=== PATIENT | male | born 1950 | race Caucasian/White ===

== ENCOUNTER 2017-08-12 20:57 | Inpatient (IN) ==
--- NOTE | 2017-08-12 21:28 | Emergency Department Note ---
Disposition Clinical Impression: NSTEMI (non-ST elevated myocardial infarction) Disposition: Admitted As Inpatient Condition: Fair Referrals: Ggae Avendaño DO [Primary Care Provider] - Forms: ED Satisfaction Letter Time of Disposition: 23:00 General Adult HPI - General Chief complaint: ED Arrhythmia/Palpitations Stated complaint: elevated heart rate, chest pain Time Seen by Provider: 08/12/17 21:01 Source: patient Mode of arrival: ambulatory Limitations: no limitations Nursing Notes Reviewed: Yes Vital Signs Reviewed: Yes - History of Present Illness HPI Narrative: 67-year-old male presenting to the emergency room chief complaint palpitations. Patient states this afternoon he felt pressure in his heart and felt like his heart was racing. He used an at-home blood pressure cuff and pulse ox to determine his pulse. He states it was between 140 and 145. Patient does have a pacemaker placed. He states it was for bradycardia. Patient denies radiation of this pain in his chest. He denies nausea or vomiting but did have diaphoresis. Patient does have high blood pressure and A. fib. Patient has had an ablation is on no anticoagulation at this time. Patient denies any recent illnesses, fever, shortness of breath. Pain Scale: 7 - Related Data Home Medications Medication Instructions Recorded Confirmed Aspirin 325 mg PO DAILY 08/12/17 08/12/17 Atorvastatin [Lipitor] 40 mg PO HS 08/12/17 08/12/17 Flecainide Acetate [Flecainide 50 mg PO Q12H 08/12/17 08/12/17 Acetate] Lisinopril/Hydrochlorothiazide 1 each PO DAILY 08/12/17 08/12/17 [Zestoretic 10-12.5 mg Tablet] Metoprolol [Lopressor] 100 mg PO BID 08/12/17 08/12/17 Omeprazole [PriLOSEC] 20 mg PO DAILY 08/12/17 08/12/17 Allergies Allergy/AdvReac Type Severity Reaction Status Date / Time No Known Allergies Allergy Verified 11/19/15 16:31 All systems ED: reviewed and negative except as stated. Constitutional: Denies: fever, chills Eyes: Reports: as per HPI ENT ED: Reports: as per HPI Cardiovascular: Reports: chest pain, palpitations. Denies: dyspnea on exertion Respiratory: Denies: cough, dyspnea, wheezes Gastrointestinal: Denies: abdominal pain, nausea, vomiting Genitourinary: Reports: as per HPI Musculoskeletal: Reports: as per HPI Integumentary: Reports: as per HPI Neurological: Denies: numbness, paresthesias Psychiatric: Reports: as per HPI Endocrine: Reports: as per HPI Hematological/Lymphatic: Reports: as per HPI Allergic/Immunologic: Reports: as per HPI Past Medical History - Past Medical History Attestation: Yes The following information was validated with the patient. Medical history: Reports: atrial fibrillation, hypertension, myocardial infarction Psychiatric history: Reports: no psych history - Social History Smoking Status: Current every day smoker Smokeless Tobacco Status: No Alcohol use: Reports: occasionally Drug use: Reports: none Physical Exam - General Limitations: no limitations General appearance: alert, in no apparent distress - Head Head exam: atraumatic, normocephalic, normal inspection - Eye Eye exam: Present: normal appearance. Absent: scleral icterus, conjunctival injection - Chest Chest inspection: Present: normal inspection, symmetric chest wall rise. Absent : tenderness, rash - Respiratory Respiratory exam: Present: normal lung sounds bilaterally, respiratory distress - Cardiovascular Cardiovascular exam: Present: regular rate, normal rhythm, normal heart sounds - Abdominal Exam Abdominal exam: Present: soft, Non-Tender. Absent: distention, guarding, rebound - Extremities Exam Extremities exam: Present: normal inspection, full ROM - Neurological Exam Neurological exam: Present: alert, oriented X3 - Psychiatric Psychiatric exam: Present: normal affect, normal mood - Skin Skin exam: Present: warm, intact Course Course Narrative: 67-year-old male presented to the emergency Department chief complaint of palpitations. EKG completed showed first-degree heart block. Patient's heart rate 70 here. We will perform a palpitation workup including basic lab, EKG, chest x-ray. Patient alert and oriented 3 and room with stable vital signs. He agrees with this plan. - Reevaluation(s) Reevaluation #1: Patient lab work is come back with an elevated troponin of 0.07. Reevaluation of the patient and he is now having 3 out of 10 chest pain. Start sublingual nitrogen trial. After 2 sublingual nitrogen he is pain-free. Patient will be started on heparin at this time and admitted for an N STEMI. I spoke with the hospitalist on-call Dr. Dalal who agrees to accept the patient at this time. Patient's alert and oriented 3 in room and stable vital signs at this time. He agrees with this plan. Time: 23:00 Vital Signs Temperature 97.9 F 08/12/17 20:57 Pulse Rate 69 08/12/17 20:57 Respiratory Rate 18 08/12/17 20:57 Blood Pressure 133/84 08/12/17 20:57 O2 Sat by Pulse Oximetry 100 08/12/17 20:57 Temperature 97.9 F 08/12/17 20:57 Pulse Rate 70 08/12/17 22:17 Respiratory Rate 22 08/12/17 22:17 Blood Pressure 94/70 08/12/17 22:17 O2 Sat by Pulse Oximetry 96 08/12/17 22:17 Oxygen Delivery Oxygen Delivery Room Air Medical Decision Making - Lab Data Result diagrams: 08/12/17 21:23 08/12/17 21:23 Lab Results 08/12/17 08/12/17 08/12/17 Range/Units 21:23 21:23 21:23 WBC 9.8 (4.3-11.1) K/mcL RBC 3.33 L (4.19-5.50) M/mcL Hgb 11.1 L (12.9-16.9) g/dL Hct 33.3 L (37.5-50.1) % MCV 100.0 (83.0-100.0) fL MCH 33.3 (28.0-33.3) pg MCHC 33.3 (31.6-35.5) g/dL RDW 12.3 (11.5-14.5) % Plt Count 233 (140-400) K/mcL MPV 9.3 L (9.4-12.4) fL Immature Gran % 0.2 (0-4) % Seg Neutrophils % 59.5 % Lymphocytes % 26.9 % Monocytes % 12.1 % Eosinophils % 0.9 % Basophils % 0.4 % Neutrophils # 5.8 (1.6-8.9) K/mcL Lymphocytes # 2.6 (0.6-4.6) K/mcL Monocytes # 1.2 (0.0-1.3) K/mcL Eosinophils # 0.1 (0.0-0.6) K/mcL Basophils # 0.0 (0.0-0.2) K/mcL PT 10.7 (9.4-12.1) Seconds INR 1.0 APTT 28.6 (26.0-36.0) Seconds Sodium 140 (136-145) mEq/L Potassium 4.2 (3.5-4.5) mEq/L Chloride 109 (98-109) mEq/L Carbon Dioxide 23 (19-29) mEq/L BUN 19 (8-26) mg/dL Creatinine 1.49 H (0.72-1.25) mg/dL Est GFR ( Amer) 57 L (> 60) Est GFR (Non-Af Amer) 47 L (> 60) BUN/Creatinine Ratio 13 (6-26) Glucose 115 H (70-99) mg/dL Calculated Osmolality 293 (280-300) Calcium 9.4 (8.6-10.8) mg/dL Magnesium 2.1 (1.6-2.6) mg/dL Troponin I (0-0.03) ng/mL TSH 2.398 (0.350-4.840) mcIU/mL 08/12/ Range/Units 21:23 WBC (4.3-11.1) K/mcL RBC (4.19-5.50) M/mcL Hgb (12.9-16.9) g/dL Hct (37.5-50.1) % MCV (83.0-100.0) fL MCH (28.0-33.3) pg MCHC (31.6-35.5) g/dL RDW (11.5-14.5) % Plt Count (140-400) K/mcL MPV (9.4-12.4) fL Immature Gran % (0-4) % Seg Neutrophils % % Lymphocytes % % Monocytes % % Eosinophils % % Basophils % % Neutrophils # (1.6-8.9) K/mcL Lymphocytes # (0.6-4.6) K/mcL Monocytes # (0.0-1.3) K/mcL Eosinophils # (0.0-0.6) K/mcL Basophils # (0.0-0.2) K/mcL PT (9.4-12.1) Seconds INR APTT (26.0-36.0) Seconds Sodium (136-145) mEq/L Potassium (3.5-4.5) mEq/L Chloride (98-109) mEq/L Carbon Dioxide (19-29) mEq/L BUN (8-26) mg/dL Creatinine (0.72-1.25) mg/dL Est GFR ( Amer) (> 60) Est GFR (Non-Af Amer) (> 60) BUN/Creatinine Ratio (6-26) Glucose (70-99) mg/dL Calculated Osmolality (280-300) Calcium (8.6-10.8) mg/dL Magnesium (1.6-2.6) mg/dL Troponin I 0.07 H* (0-0.03) ng/mL TSH (0.350-4.840) mcIU/mL
[2017-08-12 21:29] LABS: Basophils % 0.4 %; Eosinophils # 0.1 K/mcL (0.0-0.6); Eosinophils % 0.9 %; Hematocrit 33.3 % (37.5-50.1); Hemoglobin 11.1 g/dL (12.9-16.9); Immature Granulocytes % 0.2 % (0-4); Lymphocytes # 2.6 K/mcL (0.6-4.6); Lymphocytes % 26.9 %; Mean Corpuscular HGB Conc 33.3 g/dL (31.6-35.5); Mean Corpuscular Hemoglobin 33.3 pg (28.0-33.3); Mean Platelet Volume 9.3 fL (9.4-12.4); Monocytes # 1.2 K/mcL (0.0-1.3); Monocytes % 12.1 %; Neutrophils # 5.8 K/mcL (1.6-8.9); Platelet Count 233 K/mcL (140-400); Red Blood Count 3.33 M/mcL (4.19-5.50); Red Cell Distribution Width 12.3 % (11.5-14.5); Segmented Neutrophils % 59.5 %
[2017-08-12 21:34] LABS: Prothrombin Time 10.7 Seconds (9.4-12.1)
[2017-08-12 21:36] LABS: Activated Partial Thrombo Time 28.6 Seconds (26.0-36.0)
[2017-08-12 21:41] LABS: Calcium 9.4 mg/dL (8.6-10.8); Magnesium 2.1 mg/dL (1.6-2.6); Potassium 4.2 mEq/L (3.5-4.5)
[2017-08-12] MEDS ORDERED: *HR* Heparin 5,000 UNIT/ML VIAL IVP ONE (21:58)
[2017-08-12] MEDS ORDERED: *HR* Heparin 5,000 UNIT/ML VIAL IVP PRN ×2 (21:58)
[2017-08-12] MEDS ORDERED: Heparin 25,000 UNIT/500 ML D5W 25,000 UNIT/500 ML MLS IVC SCH (22:00)
[2017-08-12] MEDS ORDERED: 0.9 % Sodium Chloride 1,000 ML IVC SCH (22:00)
--- NOTE | 2017-08-12 22:02 | Emergency Department Note ---
START Narrative - START START: I examined this patient and my medical decision-making was reviewed with the Resident Physician. I agree with the documented findings, disposition and treatment plan as described except to the extent set forth below. 67yo M here for chest pain EKG shows a first-degree AV block. He does have a slightly elevated troponin. We will admit the patient to hospitalist. Consult cardiology. Started on heparin drip. Nitroglycerin. He took aspirin today. No critical care time
[2017-08-12 22:03] LABS: Thyroid Stimulating Hormone 2.398 mcIU/mL (0.350-4.840)
[2017-08-12] MEDS: Nitroglycerin 0.4 MG TAB.SUBL SL PRN ×2 (22:04→22:12)
[2017-08-13] MEDS ORDERED: *HR* HYDROcodone/Acet 5/325 mg TABLET PO PRN (03:00)
[2017-08-13] MEDS ORDERED: *HR* Morphine 2 MG/ML SYRINGE IVP PRN (03:00)
[2017-08-13] MEDS ORDERED: Acetaminophen 325 MG TABLET PO PRN (03:00)
[2017-08-13] MEDS ORDERED: Naloxone 0.4 MG/ML INJ IVP PRN (03:00)
--- NOTE | 2017-08-13 03:23 | Internal Med History&Physical ---
Date of Encounter: 08/13/17 Time of Encounter: 03: Assessment and Plan (1) Essential hypertension Current visit: Yes Status: Acute Continue with lisinopril HCTZ. Blood pressure is well controlled. (2) Hyperlipidemia Current visit: Yes Status: Acute Continue with Lipitor. Qualifiers: Hyperlipidemia type: unspecified Qualified Code(s): E78.5 - Hyperlipidemia , unspecified (3) NSTEMI (non-ST elevated myocardial infarction) Current visit: Yes Status: Acute Patient had typical anginal pain that lasted for 2 hours. Eventually improved with nitroglycerin. We will continue with IV heparin continuous infusion per ACS protocol. Trend troponin. Consult cardiology. He is at high risk for morbidity, mortality and complications due to IV heparin continuous infusion which requires intensive monitoring of coagulation parameters. Internal Medicine - H&P: HPI Chief complaint: Chest pain Admitted From: Emergency Dept Plans for Post Hospital Care: Home History of present illness: Mr. Siddiqi is a 67 year old male with past medical history significant for hypertension, atrial fibrillation, coronary artery disease and hyperlipidemia who presented to the hospital for evaluation of chest pain. Yesterday after carrying some light objects upstairs after she finished climbing stairs he started having sudden onset substernal severe pressure-like chest pain. Chest pain lasted for about 2 hours. He was brought to the hospital where he was given nitroglycerin which relieved the pain. His troponin was elevated and he was started on treatment with IV heparin and referred for admission. Family history: Patient's mother suffered with diabetes. No history of premature coronary artery disease. Social history he smokes 6 cigarettes a day, denies alcohol and drug use. Past Med Surg Social Fam HX - Past Medical History Medical history: atrial fibrillation, hypertension Psychiatric history: no psych history - Social History Smoking Status: Current every day smoker Smokeless Tobacco Status: No Alcohol use: rarely Drug use: none - Family History Mother Hx Family Endocrine Disorder: Yes Internal Medicine - H&P: Meds Aspirin 325 mg PO DAILY 08/12/17 [History] Atorvastatin [Lipitor] 40 mg PO HS 08/12/17 [History] Flecainide Acetate [Flecainide Acetate] 50 mg PO Q12H 08/12/17 [History] Lisinopril/Hydrochlorothiazide [Zestoretic 10-12.5 mg Tablet] 1 each PO DAILY [History] Metoprolol [Lopressor] 100 mg PO BID 08/12/17 [History] Omeprazole [PriLOSEC] 20 mg PO DAILY 08/12/17 [History] 3 Allergy/AdvReac Type Severity Reaction Status Date / Time No Known Allergies Allergy Verified 11/19/15 16:31 All Systems PM: A 10-system review of systems was performed and is negative for pertinent findings except as documented above in the HPI. - Constitutional Vitals: Temp Pulse Resp BP Pulse Ox 97.6 F 82 18 132/88 97 08/13/17 00:20 08/13/17 00:20 08/13/17 00:20 08/13/17 00:20 08/13/17 00:20 General appearance: Present: A&O X 3, no acute distress - Eye Eye exam: Present: PERRL, conjuntiva pink, sclera anicteric Pupils: Present: PERRL - Cardiovascular Cardiovascular exam: Present: RRR, +S1, +S2. Absent: diastolic murmur, gallop, rubs, systolic murmur - GI/Abdominal GI/Abdominal exam: Present: normal bowel sounds, soft, no peritoneal signs. Absent: distended, tenderness - Extremities Exam Extremities exam: Present: warm, radial pulses palpable and symmetrical. Absent : calf tenderness, cyanotic, pedal edema - Skin Skin exam: Present: dry, intact Internal Med - H&P Results - Labs CBC & Chem 7: 08/13/17 03:44 08/13/17 03:44 - EKG Data -: EKG Interpreted by Myself EKG shows normal: sinus rhythm (First degree AV block.), QRS complexes, ST-T waves Rate: normal
[2017-08-13 03:51] LABS: Basophils % 0.6 %; Eosinophils # 0.1 K/mcL (0.0-0.6); Eosinophils % 1.9 %; Hematocrit 30.8 % (37.5-50.1); Hemoglobin 10.2 g/dL (12.9-16.9); Immature Granulocytes % 0.1 % (0-4); Lymphocytes # 2.8 K/mcL (0.6-4.6); Lymphocytes % 41.3 %; Mean Corpuscular HGB Conc 33.1 g/dL (31.6-35.5); Mean Corpuscular Hemoglobin 33.6 pg (28.0-33.3); Mean Corpuscular Volume 101.3 fL (83.0-100.0); Mean Platelet Volume 9.2 fL (9.4-12.4); Monocytes # 0.8 K/mcL (0.0-1.3); Monocytes % 12.1 %; Platelet Count 204 K/mcL (140-400); Red Blood Count 3.04 M/mcL (4.19-5.50); Red Cell Distribution Width 12.4 % (11.5-14.5)
[2017-08-13 04:02] LABS: BUN/Creatinine Ratio 14 (6-26); Blood Urea Nitrogen 19 mg/dL (8-26); Calcium 9.2 mg/dL (8.6-10.8); Carbon Dioxide 24 mEq/L (19-29); Chloride 110 mEq/L (98-109); Glucose 91 mg/dL (70-99); Osmolality,Calculated 296 (280-300); Sodium 142 mEq/L (136-145); eGFR For African Americans > 60 (> 60); eGFR For Non-African Americans 52 (> 60)
[2017-08-13 04:23] LABS: Activated Partial Thrombo Time > 360.0 Seconds (26.0-36.0)
[2017-08-13 04:32] LABS: Heparin anti-factor XA UFH 1.34 IU/mL (0.30-0.70)
[2017-08-13] MEDS ORDERED: Metoprolol 100 MG TABLET PO SCH (09:00)
[2017-08-13] MEDS ORDERED: Aspirin 325 MG TABLET PO SCH (09:00)
--- NOTE | 2017-08-13 09:18 | Cardiology Consult Note ---
Date of Encounter: 08/13/17 Time of Encounter: 08:45 Assessment and Plan (1) Atrial fibrillation with RVR Current Visit: Yes Status: Acute Per cardiology: -Has a history of atrial fib/flutter s/p ablation 2005. -Not on anticoagulation in outpatient setting. -Admitted with palpitations. -Known medtronic pacemaker with device interrogated with atrial fibrillation/ flutter with RVR. -On flecanide and metopolol. -Currently SR, average HR previous 12 hours noted to be 64. -[id number] score 2 (age,HTN). Recommend anticoagulation. Patient agreeable. Denies bleeding or blood loss. Currently on heparin drip. -TTE pending. Pending results will decide regarding which anticoagulant. Plan to start eliquis 5mg BID if no significant valvular findings on TTE. -Will stop flecanide. -Plan to start eliquis pending TTE and will discontinue heparin drip. -Will continue to monitor. (2) Elevated troponin Current Visit: Yes Status: Acute Per cardiology: -Troponin 0.07, 0.07. -Troponins flat and adynamic in the setting of a.fib/flutter with RVR. -Denies chest pain. -ECG with no acute ischemic changes. -TTE pending. -On asa, statin, beta marco a, Heparin drip. -DO not suspect NSTEMI, suspect demand ischemia related to above. No cardiac rehab warranted. -Further recommendations pending TTE. Discussion w patient/family: The assessment and plan as outlined above was discussed with the patient who expressed understanding and agreement. All questions were answered. Thank you for involving us in the care of your patient. Please call with any questions. Discussed and reviewed with . History of Present Illness Consult date: 08/13/17 Requesting physician: Andreas Fox Consult reason: elevated troponin Chief complaint: palpitations History of present illness: Mr. Siddiqi is a 67 year old male with a relevant past medical history of SVT, atrial fibrillation/flutter s/p ablation in 2005, bradycardia s/p pacemaker, HTN , and tobacco abuse. Patient presents to [facility] with complaints of palpitations. Patient states he checked his HR at home and noted it to be 145. Patient denies chest pain, shortness of breath, or increased fatigue. Past Med Surg Social Fam HX - Past Medical History Attestation: Yes The following information was validated with the patient. Source: patient, old records reviewed Medical history: atrial fibrillation, hypertension Psychiatric history: no psych history - Social History Smoking Status: Current every day smoker Smokeless Tobacco Status: No Alcohol use: rarely Drug use: none - Family History Mother Hx Family Endocrine Disorder: Yes Medications and Allergies Aspirin 325 mg PO DAILY 08/12/17 [History] Atorvastatin [Lipitor] 40 mg PO HS 08/12/17 [History] Flecainide Acetate [Flecainide Acetate] 50 mg PO Q12H 08/12/17 [History] Lisinopril/Hydrochlorothiazide [Zestoretic 10-12.5 mg Tablet] 1 each PO DAILY [History] Metoprolol [Lopressor] 100 mg PO BID 08/12/17 [History] Omeprazole [PriLOSEC] 20 mg PO DAILY 08/12/17 [History] 3 Allergy/AdvReac Type Severity Reaction Status Date / Time No Known Allergies Allergy Verified 11/19/15 16:31 All Systems Review: A 10-system review of systems was performed and is negative for pertinent findings except as documented above in the HPI. - Cardiovascular Cardiovascular: as per HPI, palpitations, rapid heart rate Physical Examination Vital Signs, Last 4 Hours Temp Pulse Resp BP Pulse Ox 08/13/17 06:41 97.7 F 68 18 109/65 97 General: Conversant, No Apparent Distress HEENT: Atraumatic, Normocephaly, Mucus Membranes Moist Neck: No JVD, Normal carotid pulses Cardiac: Reg Rate and Rhythm, Normal S1 and S2, No Murmur Lungs: Normal Breath Sounds, No Wheeze, Rales, Rhonchi Neuro: Alert and responsive, No focal deficits noted Abdomen: Soft, Non-Tender Skin: No rashes noted on visualized skin Musculoskeletal: No Chest Wall Tenderness Extremities: No Clubbing, No Cyanosis, No Edema, Normal Pulses Results 08/13/17 03:44 08/13/17 03:44 Lab Results Impressions Chest X-Ray 08/12/17 21:16 IMPRESSION: No acute process. D/ / Je Anguiano MD / Je Anguiano MD Interpreting Provider: Je Anguiano MD Active Medications Acetaminophen (Tylenol) 650 mg PO Q6HR PRN PRN Reason: Mild Pain (1-3) Stop: 02/12/18 03:01 Hydrocodone Bitart/Acetaminophen (Brave 5-325 Mg) 1 tab PO Q4HR PRN PRN Reason: Moderate Pain (4-6) Stop: 02/12/18 03:01 Aspirin (Aspirin) 325 mg PO DAILY [facility] Stop: 02/12/18 09:01 Atorvastatin Calcium (Lipitor) 40 mg PO HS [facility] Stop: 02/12/18 21:01 Flecainide Acetate (Flecainide) 50 mg PO Q12H [facility] Stop: 02/12/18 09:01 Lisinopril/HCTZ (Prinzide 10-12.5) 1 each PO DAILY [facility] Stop: 02/12/18 09:01 Heparin Sodium (Porcine) (Heparin) 4,000 unit IVP Q6HR PRN PRN Reason: SEE COMMENTS Stop: 02/11/18 21:59 Last Admin: 08/13/17 01:09 Dose: 4,000 unit Heparin Sodium (Porcine) (Heparin) 2,000 unit IVP Q6H PRN PRN Reason: SEE COMMENTS Stop: 02/11/18 21:59 Heparin Sodium/Dextrose (Heparin 25,000 Unit/500 Ml D5w) 25,000 unit in 500 mls @ 17.256 mls/hr IVC .Q24H [facility]; 12 UNIT/KG/HR PRN Reason: Protocol Stop: 02/11/18 22:01 Last Titration: 08/13/17 05:30 Dose: 13.35 unit/kg/hr, 19.2 mls/hr Sodium Chloride (0.9 % Sodium Chloride) 1,000 mls @ 50 mls/hr IVC .Q20H [facility] Stop: 02/11/18 22:01 Last Admin: 08/12/17 22:08 Dose: 50 mls/hr Metoprolol Tartrate (Lopressor) 100 mg PO BID [facility] Stop: 02/12/18 09:01 Morphine Sulfate (Morphine Sulfate) 2 mg IVP Q4HR PRN PRN Reason: Severe Pain (7-10) Stop: 02/12/18 03:01 Naloxone HCl (Narcan) 0.4 mg IVP Q2MIN PRN PRN Reason: Opioid Reversal Stop: 02/12/18 03:01 Nitroglycerin (Nitroglycerin) 0.4 mg SL Q5MIN PRN PRN Reason: Chest Pain Stop: 02/11/18 21:59 Last Admin: 08/12/17 22:12 Dose: 0.4 mg Omeprazole (Prilosec) 20 mg PO DAILY [facility] PRN Reason: Protocol Stop: 02/12/18 09:01 Laboratory Tests 08/12/17 08/12/17 08/13/17 21:23 21:23 03:44 Hgb 10.2 L Potassium Creatinine Magnesium Troponin I 0.07 H* TSH 2.398 08/13/17 08/13/17 08/13/17 03:44 03:44 03:44 Hgb Potassium 4.0 Creatinine 1.38 H Magnesium 1.9 Troponin I 0.07 H* TSH - Imaging and Cardiology Chest Xray: report reviewed Echo: pending, report reviewed - EKG Interpretation EKG results cardiology: personally reviewed (ECG with SR, first degree AV block , HR 66.), other (Telemetry reviewed with average HR previous 12 hours noted to be 64, sinus rhythm. INtermittent pacing noted.) Consult Discharge Plan - Plan Referrals: Gage Avendaño DO [Primary Care Provider] -
[2017-08-13 10:37] VITALS: BP 119/73
--- NOTE | 2017-08-13 13:05 | Event Note ---
Date of Encounter: 08/13/17 Time of Encounter: 13:04 - Cardiology Event Note Per discussion with , TTE with no significant findings. At this time, patient does not wish to remain inpatient to start another antiarrythmic. Will start eliquis 5mg BID. Discontinue heparin drip. Cardiology will sign off and will follow in outpatient setting. Follow up set.
--- NOTE | 2017-08-13 15:01 | Discharge Summary ---
Date of Encounter: 08/13/17 Time of Encounter: 14:54 - Discharge Diagnosis (1) Atrial fibrillation with RVR Priority: Primary Status: Acute (2) Essential hypertension Priority: Secondary Status: Acute (3) Hyperlipidemia Priority: Secondary Status: Acute Qualifiers: Hyperlipidemia type: unspecified Qualified Code(s): E78.5 - Hyperlipidemia , unspecified (4) Elevated troponin Priority: Secondary Status: Acute - Discharge Medications Prescriptions: Apixaban [Eliquis] 5 mg PO BID #60 tablet Aspirin Enteric Coated [Aspirin EC] 81 mg PO DAILY #30 tablet.dr Green Medications: Atorvastatin [Lipitor] 40 mg PO HS 08/12/17 [History] Metoprolol [Lopressor] 100 mg PO BID 08/12/17 [History] Omeprazole [PriLOSEC] 20 mg PO DAILY 08/12/17 [History] Apixaban [Eliquis] 5 mg PO BID #60 tablet 08/13/17 [Rx] Aspirin Enteric Coated [Aspirin EC] 81 mg PO DAILY #30 tablet. 08/13/17 [Rx] Lisinopril/Hydrochlorothiazide [Zestoretic 10-12.5 mg Tablet] 1 each PO DAILY # 0 08/13/17 [Rx] Allergies/Adverse Reactions: 3 Allergy/AdvReac Type Severity Reaction Status Date / Time No Known Allergies Allergy Verified 11/19/15 16:31 Procedures/tests Complete & Pending: Procedures Performed prior 72 hours Category Date Time Status EV echocardiogram Routine Y 08/13/17 07:30 Completed Date of admission: 08/13/17 03:00 Primary care physician: Gage Avendaño DO Discharging clinician: Yogesh Burgess - Patient Status Disposition: Home, Self-Care Condition: Fair Functional capacity at discharge: independent ambulation Overall status at discharge: patient is back to baseline - Discharge Instructions Follow Up With: Gage Avendaño DO [Primary Care Provider] - - Diet and Activity Activity: increase activity as tolerated Diet: low fat, low cholesterol, low salt diet Hospital course: Mr. Siddiqi is a 67 year old male with a history of hypertension, remote atrial fibrillation status post ablation in 2005, coronary artery disease, hyperlipidemia who presented for evaluation of palpitations. Patient was exerting himself when carrying objects up the stairs and then had sudden onset of symptoms lasted for about 2 hours. He checked his heart rate at home and was noted to be 145 bpm. He denies any chest pain, shortness of breath, fatigue during that time. He was K came in and was given nitroglycerin which alleviated his symptoms. Patient denied any chest pain but may have admitted to [facility] in the [place]. He was started on treatment with IV heparin and referred for admission. Troponins were cycled and were 0.07 which are flat and adynamic likely in the setting of atrial fibrillation/atrial flutter with RVR. ECG showed no acute ischemic changes. Patient was not likely to have an STEMI most likely this is demand ischemia due to A. fib with RVR. She had normal heart rate while he was here and was normotensive as well. A cardiogram done here showed LVEF of 50% with no wall motion abnormalities. Pacer was interrogated. Patient was not willing to stay in the hospital longer to try another antiarrhythmic. It was discontinued, he was started on Mellette's 5 mg twice a day. He was on aspirin 325 mg daily at home, this was reduced to 81 mg daily. He was discharged home in stable condition. Of note patient did have recent acute kidney injury and he is recovering his creatinine was 1.3 here. He is on Zestoretic for home when instructed patient to hold Zestoretic for a few days and then resume it. Patient agrees to the above. - Time Spent with Patient Total time spent providing and/or coordinating discharge services: - Constitutional Vitals: Temp Pulse Resp BP Pulse Ox 98.2 F 66 18 119/73 94 08/13/17 10:37 08/13/17 10:37 08/13/17 10:37 08/13/17 10:37 08/13/17 10:37 General appearance: Present: A&O X 3, no acute distress Exam: - Eye Eye exam: Present: PERRL, conjuntiva pink, sclera anicteric Pupils: Present: PERRL - Cardiovascular Cardiovascular exam: Present: RRR, +S1, +S2. Absent: diastolic murmur, gallop, rubs, systolic murmur - GI/Abdominal GI/Abdominal exam: Present: normal bowel sounds, soft, no peritoneal signs. Absent: distended, tenderness - Extremities Exam Extremities exam: Present: warm, radial pulses palpable and symmetrical. Absent : calf tenderness, cyanotic, pedal edema - Skin Skin exam: Present: dry, intact
[2017-08-13] MEDS ORDERED: APIXABAN 5 MG TABLET PO SCH (21:00)
[2017-08-14] MEDS ORDERED: Aspirin Enteric Coated 81 MG Tablet PO SCH (09:00)
--- NOTE | 2017-08-14 14:08 | Electrocardiograph Report ---
[address] [place] [address] Test Date: 2017-08-12 Pat Name: Diego Siddiqi Department: 102 Room: 2A42 Gender: M [employer]: Ubaldo : 1950 Requested By: Delmis Moreno Order Number: [id number] Reading MD: Bacilio Rosas DO Measurements Intervals [place] Rate: 66 P: 58 MN: 212 QRS: -57 QRSD: 96 T: 64 QT: 365 QTc: 379 Interpretive Statements SINUS RHYTHM WITH FIRST DEGREE AV BLOCK, SOMETIMES ATRIAL PACING LEFT ANTERIOR FASCICULAR BLOCK Electronically Signed On 08-14-2017 14:06:30 EST by Bacilio Rosas DO
== END 2017-08-13 15:40 | disposition home or self-care (01) | DRG 201 ==
LOC: EMEROO 20:57 → 2ANU 20:57
PROVIDERS: ADMIT Family Medicine; ATTEND Internal Medicine